=== PATIENT | female | born 1950 | race African-American/Black ===

== ENCOUNTER 2019-03-09 06:46 | Day surgery (SDC) | payer MEDICARE, MEDICAID ==
[2019-03-02 10:57] LABS: BASOPHILS % (AUTO) 2.2 % (0.0-2.0); EOSINOPHILS % (AUTO) 0.9 % (0.0-3.0); HEMOGLOBIN 15.2 G/DL (12.0-16.0); LYMPHOCYTES % (AUTO) 29.4 % (20.0-45.0); MEAN CORPUSCULAR VOLUME 79 FL (80-99); MONOCYTES % (AUTO) 7.9 % (1.0-10.0); NEUTROPHILS % (AUTO) 59.6 % (45.0-75.0); PLATELET COUNT 144 K/UL (150-450); RED CELL DISTRIBUTION WIDTH 14.7 % (11.6-14.8); WHITE BLOOD COUNT 4.1 K/UL (4.8-10.8)
[2019-03-02 11:11] LABS: ANION GAP 7 mmol/L (5-15); BLOOD UREA NITROGEN 10 mg/dL (7-18); CALCIUM 9.4 MG/DL (8.5-10.1); CARBON DIOXIDE 30 MMOL/L (21-32); CHLORIDE 99 MMOL/L (98-107); CREATININE 1.1 MG/DL (0.55-1.30); POTASSIUM 4.5 MMOL/L (3.5-5.1); SODIUM 136 MMOL/L (136-145)
--- NOTE | 2019-03-02 19:37 | Cardiology Report ---
APPROVED REPORT EKG Measurement Heart [id number] Normal sinus rhythm Left axis deviation Right bundle branch block and LAFB Bifascicular block Abnormal ECG
--- NOTE | 2019-03-06 11:08 | Opthalmology H&P ---
Ophthalmology H&P H&P Chief Complaint: decreased vision in right eye HPI Vision Affects Ability to: read, focus/use eyes together Past Ocular History: other - Dry AMD HPI Narrative Blurry Vision Exam Visual Acuity: OD COUNTING FINGERS OS 20/100 Tension: OD 21 OS 18 Eye Exam: normal OU: external exam, palpebral fissure-width, marginal reflex distance, levator function, corneas, anterior chambers; findings: lens - +3 CORTICAL CATARACTS OU, fundus exam - Poor View OD Assessment/Plan Treatment Plan: cataract extraction w/ lens implant Goals of Treatment: improvement of vision, enhance quality of life Attestation Attestation The risks and benefits of the surgery as well as alternative procedures were explained to the patient in detail. Chuy Garcia MD Mar 06, 2019 11:08
--- NOTE | 2019-03-06 11:09 | Pre-Procedure Note/Attestation ---
Pre-Procedure Note/Attestation Complete Prior to Procedure Planned Procedure: right Procedure Narrative: Cataract Extraction With Intraocular Lens Implant Right Eye Indications for Procedure Pre-Operative Diagnosis: Cortical Cataract Right Eye Attestation I attest that I discussed the nature of the procedure; its benefits; risks and complications; and alternatives (and the risks and benefits of such alternatives ), prior to the procedure, with the patient (or the patient's legal customer service representative teacher). I attest that, if there was a reasonable possibility of needing a blood transfusion, the patient (or the patient's legal customer service representative teacher) was given the [facility] standardized written summary, pursuant to the [place] Blood Safety Act ([place] Health and Safety Code # 1645, as amended). I attest that I re-evaluated the patient just prior to the surgery and that there has been no change in the patient's H&P, except as documented below: Chuy Garcia MD Mar 06, 2019 11:09
[2019-03-09] VITALS (10 sets, daily range): BP systolic 139–154; BP diastolic 65–90
[~2019-03-09] VITALS: Ht 167.6 cm; Wt 74.8 kg
[2019-03-09] MEDS ORDERED: Maxitrol Opth Oint 3.5gm ONE (07:00)
[2019-03-09] MEDS ORDERED: Akten 3.5% 1ml Btl RIGHT EYE ONE (07:00)
[2019-03-09] MEDS ORDERED: Dexamethasone 4mg/ml vial ONE (07:00)
[2019-03-09] MEDS ORDERED: Pred Forte 1% Opth Susp 1ml ONE (07:00)
[2019-03-09] MEDS ORDERED: Proparacaine 0.5% Opth Soln 15ml RIGHT EYE ONE (07:00)
[2019-03-09] MEDS ORDERED: Tetracaine 0.5% Opth 4ml Soln RIGHT EYE ONE (07:00)
[2019-03-09] MEDS ORDERED: Pilocarpine 1% Opth 15ml Soln ONE (07:00)
[2019-03-09] MEDS: Cyclopentolate 1% Opth Sol 2ml RIGHT EYE SCH ×3 (09:08→09:18)
[2019-03-09] MEDS: Tropicamide 1% Opth 15ml Soln RIGHT EYE SCH ×3 (09:08→09:18)
[2019-03-09] MEDS: Diclofenac Sod 0.1% Op Soln RIGHT EYE SCH ×3 (09:08→09:18)
[2019-03-09] MEDS: Phenylephrine 10% Opth Soln 5ml RIGHT EYE SCH ×3 (09:08→09:18)
[2019-03-09] MEDS: Tobramycin Op Soln 0.3% 5ml RIGHT EYE SCH ×3 (09:08→09:18)
[2019-03-09] MEDS ORDERED: IBUPROFEN600 MG ORAL (09:10)
[2019-03-09] MEDS ORDERED: CHOLESTEROL MED PO (09:10)
[2019-03-09] MEDS ORDERED: Povidone-Iodine 5% opth solution ONE (09:36)
[2019-03-09] MEDS ORDERED: Sodium Hyaluronate 14 mg/ml 0.85ml ONE (09:36)
[2019-03-09] MEDS ORDERED: EPINEPHrine 1mg/1ml Amp ONE (09:36)
[2019-03-09] MEDS ORDERED: BSS 500ml btl ONE (09:36)
[2019-03-09] MEDS ORDERED: LR 1000ml 1,000 ML IVLG SCH (09:36)
[2019-03-09] MEDS ORDERED: BSS 15ml BTL ONE (09:36)
--- NOTE | 2019-03-09 09:36 | Anethesia Preoperative Eval ---
Anesthesia Pre-op PMH/ROS General Date of Evaluation: Mar 09, 2019 Anesthesiologist: Kaushik ASA Score: ASA 2 Mallampati Score Class I : Soft palate, uvula, fauces, pillars visible Class II: Soft palate, uvula, fauces visible Class III: Soft palate, base of uvula visible Class IV: Only hard plate visible Mallampati Classification: Class II Surgeon: Radha Diagnosis: Right cataract Surgical Procedure: Right cataract extraction with IOL Anesthesia History: none Family History: no anesthesia problems Allergies: Coded Allergies: No Known Allergies (Unverified , 03/09/19) Medications: see eMAR Patient NPO?: Yes NPO Date: Mar 08, 2019 NPO Time: 22:00 Past Medical History Cardiovascular: Reports: other - HLD; Denies: HTN, CAD, MD, valve dz, arrhythmia Pulmonary: Denies: asthma, COPD, SADIA, other Gastrointestinal/Genitourinary: Denies: GERD, CRI, ESRD, other Neurologic/Psychiatric: Denies: dementia, CVA, depression/anxiety, TIA, other Endocrine: Denies: DM, hypothyroidism, steroids, other HEENT: Reports: cataract (L), cataract (R), glaucoma; Denies: [place] (L), [place] (R), other Hematology/Immune: Denies: anemia, DVT, bleeding disorder, other Musculoskeletal/Integumentary: Denies: OA, RA, DJD, DDD, edema, other PSxH Narrative: Left foot surgery Anesthesia Pre-op Phys. Exam Physician Exam Last Vital Signs Date Time Temp Pulse Resp B/P (MAP) Pulse Ox O2 Delivery O2 Flow Rate FiO2 03/09/19 09:16 Room Air 03/09/19 09:11 97.9 64 18 153/90 99 Constitutional: NAD Cardiovascular: RRR Respiratory: CTA Airway Exam Mallampati Score: Class II MO: full ROM: full Anesthesia Pre-op A/P Labs see chart Studies Pre-op Studies: EKG - RBBB Risk Assessment & Plan Assessment: ASA II Plan: MAC Status Change Before Surgery: No Pre-Antibiotics Drug: N/A Nevin Esparza MD Mar 09, 2019 09:36
[2019-03-09] MEDS ORDERED: DiphenhydrAMINE 50mg/ml Inj IVP PRN (09:45)
[2019-03-09] MEDS ORDERED: Lidocaine 1% MPF 10mg/ml 5ml ONE (10:51)
[2019-03-09] MEDS ORDERED: Midazolam 2mg/2ml Inj ONE (10:51)
[2019-03-09] MEDS ORDERED: fentaNYL 100 mcg/2 mL IV ONE (10:51)
[2019-03-09] MEDS ORDERED: LR 1000ml ONE (11:00)
--- NOTE | 2019-03-09 11:41 | Immediate Post-Op Evaluation ---
Immediate Post-Op Evalulation Immediate Post-Op Evalulation Procedure: Right cataract extraction with IOL Date of Evaluation: Mar 09, 2019 Time of Evaluation: 11:41 IV Fluids: 300 Blood Products: 0 Estimated Blood Loss: 0 Urinary Output: 0 Blood Pressure Systolic: 152 Blood Pressure Diastolic: 80 Pulse Rate: 63 Respiratory Rate: 16 O2 Sat by Pulse Oximetry: 98 Temperature (Fahrenheit): 98 Pain Score (1-10): 0 Nausea: No Vomiting: No Complications 0 Patient Status: awake, reacts, patent, none Hydration Status: adequate Drug: N/A Nevin Esparza MD Mar 09, 2019 11:41
--- NOTE | 2019-03-09 11:42 | 48 Hour Post Anesthesia Eval ---
Post Anesthesia Evaluation Procedure: Right cataract extraction with IOL Date of Evaluation: Mar 09, 2019 Airway: patent Nausea: No Vomiting: No Pain Intensity: 0 Hydration Status: adequate Cardiopulmonary Status: at baseline Mental Status/LOC: patient returned to baseline Post-Anesthesia Complications: 0 Follow-up care needed: ready to discharge Nevin Esparza MD Mar 09, 2019 11:42
--- NOTE | 2019-03-10 11:30 | Pre-op HX & Phy Repo 2 SIG ---
PRESURGICAL INTERNAL MEDICINE HISTORY AND PHYSICAL HISTORY OF PRESENT ILLNESS: I was asked to see this 68-year-old male by Dr. Chuy Garcia. The patient is going for elective surgery on the right eye. The patient has a cortical cataract, right eye. Please see full Ophthalmology History and Physical by Dr. Chuy Garcia. The patient was evaluated. Chart was reviewed. PAST MEDICAL HISTORY/REVIEW OF SYSTEMS: Remarkable for hypertension. No history of chest pain, palpitation, or heart attack. No history of diabetes. Denies history of stroke or seizures. No history of renal failure or insufficiency. No thyroid problem. No anemia. No respiratory problem. PAST SURGICAL HISTORY: Left foot bunion, chest wall cyst. FAMILY HISTORY: Mother of old age 85. Father has a cancer. ALLERGIES: Not known. PRESENT MEDICATIONS: Unknown. SOCIAL HISTORY: Tobacco use for 50 years, cigars. Alcohol, dana daily. No street drugs. PHYSICAL EXAMINATION: GENERAL: Alert, well-developed, well-nourished male in his 60s. VITAL SIGNS: Blood pressure 142/87, temperature 98.9, pulse 75, respiration 18, and O2 saturation 99% on room air. SKIN: No rashes. Dry and warm. Lymph node not enlarged. HEENT: Head normocephalic and atraumatic. Ears, clear. Eyes, full description per Dr. Chuy Garcia. Mouth clear and moist. No dentures. NECK: Supple. No jugular vein distention. CHEST: No deformity or asymmetry. HEART: Regular. No murmur. No S3 or S4. No ectopy. ABDOMEN: Soft, benign. No palpable mass. No rebound. RESPIRATORY: No rales or rhonchi. No wheezing. EXTREMITIES: No peripheral edema. No varicose veins. No calf tenderness. GENITOURINARY TRACT: No dysuria. No CVA tenderness. NERVOUS SYSTEM: No tremor. No nystagmus. LABORATORY AND DIAGNOSTIC DATA: ECG normal sinus rhythm, left axis deviation, right bundle-branch block, rate 64. Laboratory pending. IMPRESSION: 1. Cataract, right eye. 2. Hypertension, untreated. 3. ECG changes, right bundle-branch block, left axis deviation. PLAN: Cataract extraction, right eye with intraocular lens implant per Dr. Chuy Garcia. CONCLUSION: The patient is a 68-year-old male, going for elective surgery. His EKG shows a sinus rhythm, left axis deviation, right bundle-branch block. The patient is asymptomatic. His blood pressure elevated, he is not on any medication. The patient is a smoker and drinks alcohol regularly. The patient to be NPO after midnight . The patient's condition optimized for surgery. Desire Maciel M.D. DR: Kenneth JOB#: [id number] CC:
--- NOTE | 2019-03-10 12:56 | Operative Note - PDOC ---
Operative Note Operative Note Date of Operation/Procedure: Mar 09, 2019 Chief Complaint: blurry vision Pre-op Diagnosis: Cortical Cataract Right Eye Procedure: phaco with IOL Post-op Diagnosis: pseudophakia Post-op Diagnosis: same as pre-op Operative Findings: consistent w/pre-op dx studies Surgeon: Radha Anesthesiologist: Priyanka Anesthesia: MAC Specimen: none Complications: none Condition: stable Fluids: LR Estimated Blood Loss: none Drains: none Implant(s) used?: Yes Indications for Procedure cataract Description of Procedure This patient has been complaining visually significant cataract in the affected eye with the best corrected visual acuity under moderate glare conditions worse. The patient complains of difficulties with glare in performing activities of daily living and wants to manage personal affairs with comfort and accuracy and see well enough to move with safety at home and outdoors. The risks, benefits and alternatives of the procedure were discussed with the patient in the office prior to scheduling surgery. All questions from the patient were answered after the surgical procedure was explained in detail. The risks of the procedure as explained to the patient include, but are not limited to, pain, infection, bleeding, loss of vision, retinal detachment, need for further surgery, loss of lens nucleus, double vision, etc. Alternative procedures were discussed which include, to do nothing or seek a second opinion. Informed consent for this procedure was obtained from the patient. The patient was referred to a primary care physician for a cardiopulmonary clearance prior to surgery, after proper evaluation was done patient was properly scheduled for outpatient surgery. The patient was brought to the operating room where the anesthesiologist established I.V. lines and cardiac monitoring leads. Mild intravenous sedation was administered. The patient was then prepared with a 5% solution of povidone -iodine to the conjunctival fornix and lashes, and a 5% solution of povidone- iodine to the lids and periorbital skin. The patient was then draped in the usual sterile fashion. A lid speculum was then placed in the operative eye. A keratome blade was then used to create a biplanar incision into the anterior chamber. Viscoelastics was then instilled into the anterior chamber. A 3-mm single pass clear corneal incision was made just anterior to the vascular arcade of the temporal limbus using a keratome. Anterior curvilinear capsulorrhexis was created. The nucleus was hydrodissected and hydrodelineated with a G 27 cannula and was freely movable in the capsular bag. The nucleus was then phacoemulsified using a quadrantic [id number] technique. Following the deep groove formation, the lens was split bimanually and the resultant quadrants and cortical material was removed under vacuum burst-mode phacoemulsification. Peripheral cortex was removed with the irrigation and aspiration handpiece. The capsular bag was expanded with viscoelastic. The intraocular lens was then inspected for right power and size and thought to be satisfactory. The implant was inspected under the microscope and found to be free of defects. The implant was inserted into the cartridge system under viscoelastic and placed in the capsular bag. The trailing haptic was positioned with the cartridge system. Viscoelastics was removed from the anterior chamber using the irrigation and aspiration unit. The corneal wound was then tested for leaks and none were found. The lid speculum were then removed. Sponge and needle counts were correct. An eye patch and shield were placed over the operative eye. The patient was taken to the recovery room in stable condition. There were no complications. The patient tolerated the procedure well. The patient was then transferred to the ambulatory surgery unit in stable and satisfactory condition , was given detailed written instructions and asked to follow up in the office the next day. Chuy Garcia MD Mar 10, 2019 12:56
--- NOTE | 2019-03-10 12:56 | Brief Operative Note ---
Immediate Post Operative Note Operative Note Chief Complaint: blurry vision Pre-op Diagnosis: Cortical Cataract Right Eye Procedure: phaco with IOL Post-op Diagnosis: pseudophakia Post-op Diagnosis: same as pre-op Findings: consistent w/pre-op dx studies Surgeon: Radha Anesthesiologist: Priyanka Anesthesia: MAC Specimen: none Complications: none Condition: stable Fluids: LR Estimated Blood Loss: none Drains: none Implant(s) used?: Yes Chuy Garcia MD Mar 10, 2019 12:55
== END 2019-03-09 13:50 | disposition home or self-care (01) ==
LOC: SUR 06:46
DX: H25.011 Cortical age-related cataract, right eye (principal); I45.2 Bifascicular block; R94.31 Abnormal electrocardiogram [ECG] [EKG]; E78.5 Hyperlipidemia, unspecified; I10 Essential (primary) hypertension; Z87.891 Personal history of nicotine dependence
CPT/HCPCS: 36415; 66984; 80048; 85025; 93005; J0171; J1100; J2250; J3010; V2632; 94003; 94150